=== PATIENT | female | born 1965 | race Caucasian/White ===

== ENCOUNTER 2018-02-22 08:55 | Emergency (ER) | payer BC ==
--- NOTE | 2018-02-22 09:05 | EDM.PDOC ---
ED HPI GENERAL MEDICAL PROBLEM - General Chief Complaint: General Stated Complaint: HEADACHES AND DIZZINESS Time Seen by Provider: 02/22/18 08:56 Source of Information: Reports: Patient History Limitations: Reports: No Limitations - History of Present Illness INITIAL COMMENTS - FREE TEXT/NARRATIVE: History of present illness: []Patient's had 2-3 days of dizziness when she moves her head and a diffuse mild headache. She states each episode lasts just a few minutes and subsides when she lays still. She has high blood pressure and her blood pressure can running mildly higher than normal. She took her blood pressure meds this morning but it continues to run high at 60s/120s in the ED. Patient denies any recent illnesses, sore throat, sinus congestion or pain, chest pain or shortness of breath. Review of systems: As per history of present illness and below otherwise all systems reviewed and negative. Past medical history: As per history of present illness and as reviewed below otherwise noncontributory. Surgical history: As per history of present illness and as reviewed below otherwise noncontributory. Social history: No reported history of drug or alcohol abuse. Family history: As per history of present illness and as reviewed below otherwise noncontributory. Physical exam: General: Well developed, well nourished in NAD HEENT: Atraumatic, normocephalic, pupils reactive, negative for conjunctival pallor or scleral icterus, mucous membranes moist, throat clear, neck supple, nontender, trachea midline. Lungs: Clear to auscultation, breath sounds equal bilaterally, chest nontender. Heart: S1S2, regular, negative for clicks, rubs, or JVD. Abdomen: Soft, nondistended, nontender. Negative for masses or hepatosplenomegaly. Negative for costovertebral tenderness. Pelvis: Stable nontender. Genitourinary: Deferred. Rectal: Deferred. Extremities: Atraumatic, negative for cords or calf pain. Neurovascular unremarkable. Neuro: Awake, alert, oriented. Cranial nerves II through XII unremarkable. Cerebellum unremarkable. Motor and sensory unremarkable throughout. Exam nonfocal. Skin:warm and dry Diagnostics: CT head negative Therapeutics: Clonidine, meclizine, Zofran ED Course: Improved, blood pressure decreased to 138/90 Impression: Benign positional vertigo, uncontrolled hypertension Prescriptions: Meclizine, Zofran Plan: Follow-up with primary care return if symptoms worsen or change Definitive disposition and diagnosis as appropriate pending reevaluation and review of above. headache Pain Score (Numeric/FACES): 9 - Related Data Allergies Allergy/AdvReac Type Severity Reaction Status Date / Time No Known Allergies Allergy Verified 02/22/18 09:08 Home Meds: Home Meds Meclizine [Antivert] 25 mg PO TID #30 tab 02/22/18 [Rx] Ondansetron HCl [Zofran] 4 mg PO Q4HR #12 tablet 02/22/18 [Rx] Valsartan 160 mg PO DAILY 02/22/18 [History] hydroCHLOROthiazide [Hydrochlorothiazide] 25 mg PO DAILY 02/22/18 [History] ED ROS GENERAL - Review of Systems Review Of Systems: ROS reveals no pertinent complaints other than HPI. ED EXAM, GENERAL - Physical Exam Exam: See Below (See history of present illness) Course - Vital Signs Last Recorded V/S: Last Vital Signs Temp 97.9 F 02/22/18 09:06 Pulse 79 02/22/18 09:06 Resp 18 02/22/18 09:06 BP 138/90 02/22/18 09:43 Pulse Ox 98 02/22/18 09:06 - Orders/Labs/Meds Meds: Medications Discontinued Medications Generic Name Dose Route Start Last Admin Trade Name Jelani PRN Reason Stop Dose Admin Clonidine HCl 0.2 mg 02/22/18 09:09 02/22/18 09:18 Catapres PO 02/22/18 09:10 0.2 mg ONETIME ONE Administration Meclizine HCl 25 mg 02/22/18 09:09 02/22/18 09:18 Antivert PO 02/22/18 09:10 25 mg ONETIME ONE Administration Ondansetron HCl 4 mg 02/22/18 09:09 02/22/18 09:22 Zofran Odt PO 02/22/18 09:10 4 mg ONETIME ONE Administration Departure - Departure Time of Disposition: 10:00 Disposition: Home, Self-Care 01 Condition: Good Clinical Impression: Benign positional vertigo Qualifiers: Laterality: unspecified laterality Qualified Code(s): H81.10 - Benign paroxysmal vertigo, unspecified ear - Discharge Information *PRESCRIPTION DRUG MONITORING PROGRAM REVIEWED*: No *COPY OF PRESCRIPTION DRUG MONITORING REPORT IN PATIENT GERRY: No Prescriptions: Ondansetron HCl [Zofran] 4 mg PO Q4HR #12 tablet Meclizine [Antivert] 25 mg PO TID #30 tab Referrals: PCP,None [Primary Care Provider] - Forms: ED Department Discharge Additional Instructions: The following information is given to patients seen in the emergency department who are being discharged to home. This information is to outline your options for follow-up care. We provide all patients seen in our emergency department with a follow-up referral. The need for follow-up, as well as the timing and circumstances, are variable depending upon the specifics of your emergency department visit. If you don't have a primary care physician on staff, we will provide you with a referral. We always advise you to contact your personal physician following an emergency department visit to inform them of the circumstance of the visit and for follow-up with them and/or the need for any referrals to a consulting specialist. The emergency department will also refer you to a specialist when appropriate. This referral assures that you have the opportunity for follow-up care with a specialist. All of these measure are taken in an effort to provide you with optimal care, which includes your follow-up. Under all circumstances we always encourage you to contact your private physician who remains a resource for coordinating your care. When calling for follow-up care, please make the office aware that this follow-up is from your recent emergency room visit. If for any reason you are refused follow-up, please contact the [facility] Emergency Department at and asked to speak to the emergency department charge nurse. Lenore Davisfran as directed, follow up with primary care return if symptoms worsen or change. [facility] Primary Care [facility] [place] [id number]
[2018-02-22] MEDS ORDERED: Ondansetron 4 MG Tab.DIS PO ONE (09:09)
[2018-02-22] MEDS ORDERED: Meclizine 25 MG Tab PO ONE (09:09)
[2018-02-22] MEDS ORDERED: cloNIDine 0.1 MG Tab PO ONE (09:09)
--- NOTE | 2018-02-22 09:57 | CT ---
EXAMINATION: Non contrast CT head. Coronal and sagittal reformats. HISTORY: High blood pressure FINDINGS: No evidence of intra or extra axial hemorrhage, mass, midline shift, hydrocephalus or edema. No hypoattenuation changes in the major vascular territories to suggest acute infarct. No abnormal intracranial calcifications are detected. No evidence of substantial vascular calcificat ions. Paranasal sinuses and mastoid air cells are well aerated without substantial findings. Orbits and gl obes are symmetric. Pituitary fossa appears unremarkable. Calvarium is intact. No evidence of skull fracture. IMPRESSION: No acute intracranial findings.
== END 2018-02-22 10:20 | disposition home or self-care (01) ==
LOC: MW.ED 08:55
DX: H81.10 Benign paroxysmal vertigo, unspecified ear (principal); I10 Essential (primary) hypertension; Z79.899 Other long term (current) drug therapy
CPT/HCPCS: 70450; 99284; A9270